=== PATIENT | female | born 1995 | race Asian ===

== ENCOUNTER 2020-03-20 20:16 | Emergency (ER) | payer OTHER ==
[~2020-03-20] VITALS: Ht 157.5 cm; Wt 56.7 kg
--- NOTE | 2020-03-20 21:08 | NUR ---
PT WAS BIB DAD TO THE ER FOR C/O FLU LIKE SYMPTOMS SUCH SORE THROAT, DIFFICULTY BREATHING, N/V AND CHEST TIGHTNESS . SHE STATED SHE WOKE UP W/ "ALLERGY REACTION" TODAY. SHE ALSO STATED SHE HAD A TEMP OF 100F EARLIER WHICH SUBSIDED TO 99 FTER SHE VOMITED. PT WAS PLACED ON A MONITOR . SATTING 99% ON R/A. CURRENTLY AFEBRILE. 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 WILL CONT TO MONITOR,
[2020-03-20] MEDS ORDERED: ONDANSETRON HCL/PF 4 MG/2 ML VIAL ONE (21:23)
[2020-03-20] MEDS ORDERED: IV NS 0.9% 1,000 ML BAG IV ONE ×2 (21:30→22:30)
[2020-03-20] MEDS ORDERED: ONDANSETRON HCL/PF 4 MG/2 ML VIAL IV ONE (21:30)
--- NOTE | 2020-03-20 21:40 | NUR ---
RADIOLOGY AT BEDSIDE
--- NOTE | 2020-03-20 21:40 | NUR ---
PT MEDICATED. VSS.
--- NOTE | 2020-03-20 23:42 | NUR ---
Patient discharged to home in stable condition. Written and verbal after care instructions given. Patient verbalizes understanding of instruction and RX. Pt ambulated with steady gait, vss.
--- NOTE | 2020-03-20 23:42 | NUR ---
IV removed. Catheter intact and site benign. Pressure and 4x4 applied to site. No bleeding noted.
[2020-03-20 23:43] VITALS: BP 114/66
== END 2020-03-20 23:44 | disposition home or self-care (01) ==
LOC: ER 20:19
DX: R11.2 Nausea with vomiting, unspecified (principal); R50.9 Fever, unspecified; Z20.828 Contact with and (suspected) exposure to other viral communicable diseases; F17.200 Nicotine dependence, unspecified, uncomplicated
CPT/HCPCS: 71045; 87070; 87880; 96361; 96374; 99284; J2405; J7030 ×2; 86403-TC; C9803-CS; U0003-CS

== ENCOUNTER 2020-10-12 10:13 | Emergency (ER) | payer SELFPAY ==
[~2020-10-12] VITALS: Ht 157.5 cm; Wt 56.7 kg
[2020-10-12 10:19] VITALS: BP 119/81
--- NOTE | 2020-10-12 10:20 | NUR ---
The patient bibs for c/o left ear pain x 4 days, 8/10 pain scale. The patient denies SOB. Respiration regular and unlabored. Will continue to monitor the patient
[2020-10-12] MEDS ORDERED: IV NS 0.9% 1,000 ML BAG IV ONE (10:30)
[2020-10-12] MEDS ORDERED: METOCLOPRAMIDE HCL 10 MG/2 ML VIAL IV ONE (10:30)
[2020-10-12] MEDS ORDERED: KETOROLAC TROMETHAMINE INJ 30 MG/ML VIAL IV ONE (10:30)
[2020-10-12] MEDS ORDERED: KETOROLAC TROMETHAMINE 15 MG/ML VIAL ONE (10:50)
[2020-10-12] MEDS ORDERED: METOCLOPRAMIDE HCL 10 MG/10 ML UDC ONE (10:50)
[2020-10-12] MEDS ORDERED: METOCLOPRAMIDE HCL 10 MG/2 ML VIAL ONE (10:51)
[2020-10-12 10:53] LABS: BASOPHILS % (AUTO) 0.6 % (0.0-2.0); EOSINOPHILS % (AUTO) 0.5 % (0.0-6.0); HEMATOCRIT 41 % (33-45); HEMOGLOBIN 13.7 g/dL (11.5-14.8); LYMPHOCYTES # (AUTO) 1.1 /CMM (0.8-4.8); LYMPHOCYTES % (AUTO) 22.3 % (20.0-44.0); MEAN CORPUSCULAR HGB CONC 34 g/dl (31.0-36.0); MEAN CORPUSCULAR VOLUME 91 fL (82-100); MONOCYTES # (AUTO) 0.4 /CMM (0.1-1.30); MONOCYTES % (AUTO) 7.9 % (2.0-12.0); NEUTROPHILS # (AUTO) 3.5 /CMM (1.8-8.9); NEUTROPHILS % (AUTO) 68.7 % (43.0-81.0); PLATELET COUNT (AUTO) 361 /CMM (150-450); RED BLOOD CELL COUNT(AUTO) 4.46 MIL/uL (4.0-5.2); WHITE BLOOD COUNT (AUTO) 5.1 K/uL (4.3-11.0)
[2020-10-12 11:01] LABS: CALCIUM, SERUM 8.9 mg/dL (8.5-10.1); CREATININE 0.6 mg/dL (0.6-1.3); POTASSIUM 4.2 mmol/L (3.5-5.1)
[2020-10-12 11:06] LABS: ALBUMIN 4.3 g/dL (3.4-5.0); BILIRUBIN,DIRECT 0.1 mg/dL (0.0-0.2); BILIRUBIN,TOTAL 0.5 mg/dL (0.2-1.0); TOTAL PROTEIN, SERUM 8.7 g/dL (6.4-8.2)
[2020-10-12] MEDS ORDERED: ONDA4TAB5 PO (11:15)
--- NOTE | 2020-10-12 11:39 | NUR ---
Patient discharged to home in stable condition. Written and verbal after care instructions given. Patient verbalizes understanding of instruction. The patient left ER in stable condition.
== END 2020-10-12 11:40 | disposition home or self-care (01) ==
LOC: ER 10:15
DX: G43.909 Migraine, unspecified, not intractable, without status migrainosus (principal); R11.2 Nausea with vomiting, unspecified; E86.0 Dehydration; F17.200 Nicotine dependence, unspecified, uncomplicated
CPT/HCPCS: 36415; 80048; 80076; 83690; 85025; 96361; 96374; 96375; 99284; J1885; J2765; J7030; J8597

== ENCOUNTER 2021-07-20 18:22 | Emergency (ER) | payer OTHER ==
[~2021-07-20] VITALS: Ht 152.4 cm; Wt 59.4 kg
[~2021-07-20 18:22] MED LIST: ONDA4TAB5 PO
[2021-07-20 18:45] VITALS: BP 134/70
--- NOTE | 2021-07-20 18:45 | NUR ---
"Dx w/COVID POSITIVE 5d ago still have cough/congestion/body ache/[place]". PT A/OX4. TOLERATING R/A AT 98%.
--- NOTE | 2021-07-20 19:30 | NUR ---
PER GAEL DEJESUS. VERBAL ORDERS TO CANCEL COVID ANTIGEN TEST.
--- NOTE | 2021-07-20 19:42 | NUR ---
Patient discharged to home in stable condition. Written and verbal after care instructions given. Patient verbalizes understanding of instruction. PT ambulatory with a steady gait
== END 2021-07-20 19:44 | disposition home or self-care (01) ==
LOC: ER 18:27
DX: U07.1 COVID-19 (principal); F17.200 Nicotine dependence, unspecified, uncomplicated